=== PATIENT | male | born 1960 | race Caucasian/White ===

== ENCOUNTER 2024-07-06 19:16 | Emergency (ER) | payer MEDICAID ==
[~2024-07-06] VITALS: Ht 167.6 cm; Wt 75.0 kg
[2024-07-06 19:47] VITALS: BP 107/75; PULSE 72; RESP 16; TEMP 98.4; O2SAT 95
== END 2024-07-07 00:30 | disposition left against medical advice (07) ==
LOC: ER 19:16
DX: R07.9 Chest pain, unspecified (principal); R41.82 Altered mental status, unspecified; I10 Essential (primary) hypertension; I25.2 Old myocardial infarction; F10.90 Alcohol use, unspecified, uncomplicated; K21.9 Gastro-esophageal reflux disease without esophagitis; Z86.73 Personal history of transient ischemic attack (TIA), and cerebral infarction without residual deficits; Y90.9 Presence of alcohol in blood, level not specified
CPT/HCPCS: 71045; 93005; 99284